=== PATIENT | female | born 1960 | race Caucasian/White ===

== ENCOUNTER 2018-11-17 11:33 | Emergency (ER) | payer OTHER ==
[~2018-11-17] VITALS: Ht 160 cm; Wt 50.9 kg
[~2018-11-17 11:33] MED LIST: ADVAIR DISK1 INH; AFRIN; ALBUTEROL4 M1 PO; ALEVE220 M1 PO; AMOXICILLIN/CL875 MG OR; AMOXICILLIN/CL875 MG PO; BACLOFEN10 MG PO; CIPROFLOXACN500 MG PO; FLORASTOR250 M1 PO; FLOVENT HFA44 MCG IN; FLUARIX QUADRIV1 IN1 IM; KETOROLAC60 MG/2 ML IJ; MEDDOSEPAK OR; MEDDOSEPAK PO; NAPROSYN500 MG PO; NORCO1 TA1 PO; PROAIR HFA IN; PROVENTIL HFA INH; PULMICORT90 MCG IN; QVAR80 MCG IN; TRAMADOL HCL50 MG PO; ULTRAM50 MG OR; VENTOLIN HF1 IN; [UNRECOGNIZED DRUG - OTHER]
[2018-11-17 12:42] LABS: HEMATOCRIT 41.6 % (37.0-47.0); HEMOGLOBIN 14.1 g/dl (12.0-16.0); IMMATURE GRANULOCYTES 0.4 % (0.0-5.0); MEAN CELL VOLUME 89.5 fL CALC (80.0-100.0); MEAN CORPUSCULAR HGB 30.3 pG CALC (26.0-32.0); MEAN CORPUSCULAR HGB CONC 33.9 g/L CALC (32.0-36.0); NEUT# 4.73 thou/uL (2.00-7.15); RED BLOOD COUNT 4.65 mill/uL (4.20-5.60); RED CELL DISTRI WIDTH 12.6 % (11.5-15.5)
[2018-11-17 12:52] LABS: ALBUMIN 4.3 g/dL (3.2-5.0); ALKALINE PHOSPHATASE 86 u/l (38-126); ANION GAP 12 (6-22 (CALC)); BILIRUBIN, TOTAL 0.5 mg/dL (0.0-1.4); BUN 24 mg/dL (7-17); BUN/CREATININE RATIO 31 (12-20 (CALC)); CARBON DIOXIDE 27 mmol/l (22-30); CHLORIDE 103 mmol/l (95-108); CREATININE 0.8 mg/dL (0.5-1.0); GFR > 60 ML/MIN (>=60 (CALC)); GFR FOR AFR.AMER. > 60 ML/MIN (>=60 (CALC)); POTASSIUM 4.2 mmol/l (3.5-5.1); SGOT/AST 26 u/l (14-36); SODIUM 138 mmol/l (137-146); TOTAL PROTEIN 6.8 g/dL (6.3-8.2)
[2018-11-17] MEDS ORDERED: AMOXICILLIN500 MG PO (12:56)
[2018-11-17] MEDS ORDERED: CLARITIN10 M1 PO (12:56)
[2018-11-17] MEDS ORDERED: FLONASE AL50 MCG/ACT (12:56)
[2018-11-17 13:04] VITALS: BP 123/64
== END 2018-11-17 13:10 | disposition home or self-care (01) ==
LOC: ED 11:33
PROVIDERS: Emergency Medicine
DX: R04.0 Epistaxis (principal); J31.0 Chronic rhinitis; J44.9 Chronic obstructive pulmonary disease, unspecified; F17.200 Nicotine dependence, unspecified, uncomplicated

== ENCOUNTER 2022-06-07 08:59 | Emergency (ER) | payer OTHER ==
[~2022-06-07] VITALS: Ht 160 cm; Wt 54.5 kg
[2022-06-07] VITALS (15 sets, daily range): BP systolic 122–141; BP diastolic 48–73
[~2022-06-07 08:59] MED LIST changes: +AMOXICILLIN500 MG PO; +CLARITIN10 M1 PO; +FLONASE AL50 MCG/ACT
[2022-06-07 09:25] LABS: HEMATOCRIT 43.5 % (37.0-47.0); HEMOGLOBIN 14.6 g/dl (12.0-16.0); IMMATURE GRANULOCYTES 2.8 % (0.0-5.0); MEAN CELL VOLUME 92.4 fL CALC (80.0-100.0); MEAN CORPUSCULAR HGB CONC 33.6 g/dL CAL (32.0-36.0); NEUT# 11.12 thou/uL (2.00-7.15); RED BLOOD COUNT 4.71 mill/uL (4.20-5.60); RED CELL DISTRI WIDTH 14.9 % (11.5-15.5)
[2022-06-07] MEDS ORDERED: PREDNISONE10 MG PO (12:17)
[2022-06-07] MEDS ORDERED: ZPAK PO (12:17)
== END 2022-06-07 12:30 | disposition home or self-care (01) ==
LOC: ED 08:59
PROVIDERS: Emergency Medicine
DX: J20.9 Acute bronchitis, unspecified (principal); J44.0 Chronic obstructive pulmonary disease with (acute) lower respiratory infection; F17.200 Nicotine dependence, unspecified, uncomplicated

== ENCOUNTER 2023-01-14 11:05 | Emergency (ER) | payer OTHER ==
[2023-01-14] VITALS (9 sets, daily range): BP systolic 96–129; BP diastolic 40–55
[~2023-01-14] VITALS: Ht 160 cm; Wt 59.4 kg
[~2023-01-14 11:05] MED LIST changes: +PREDNISONE10 MG PO; +ZPAK PO
[2023-01-14] MEDS ORDERED: SYMBICORT1 AE1 IN (11:24)
[2023-01-14] MEDS ORDERED: FLOVENT HF220 MCG/AC (11:24)
[2023-01-14] MEDS ORDERED: ATORVASTATIN CA40 MG PO (11:25)
[2023-01-14] MEDS ORDERED: VOLTAREN1%GEL TOP (12:38)
[2023-01-14] MEDS ORDERED: MOTRIN400 MG/TAB PO (12:38)
[2023-01-14] MEDS ORDERED: TRAMADOL HYDROC50 M1 PO (14:15)
== END 2023-01-14 12:53 | disposition home or self-care (01) ==
LOC: ED 11:05
DX: M25.511 Pain in right shoulder (principal); J44.9 Chronic obstructive pulmonary disease, unspecified

== ENCOUNTER 2024-02-27 09:44 | Emergency (ER) | payer OTHER ==
[~2024-02-27] VITALS: Ht 160 cm; Wt 59.0 kg
[2024-02-27] VITALS (7 sets, daily range): BP systolic 121–151; BP diastolic 61–76
[~2024-02-27 09:44] MED LIST changes: +ATORVASTATIN CA40 MG PO; +FLOVENT HF220 MCG/AC; +MOTRIN400 MG/TAB PO; +SYMBICORT1 AE1 IN; +TRAMADOL HYDROC50 M1 PO; +VOLTAREN1%GEL TOP
[2024-02-27 10:08] LABS: BASO% 0.1 % (0-3); HEMATOCRIT 44.8 % (37.0-47.0); HEMOGLOBIN 14.6 g/dl (12.0-16.0); IMMATURE GRANULOCYTES 2.1 % (0.0-5.0); LYMPH% 8.8 % (15-41); MEAN CELL VOLUME 92.8 fL CALC (80.0-100.0); MEAN CORPUSCULAR HGB 30.2 pG CALC (26.0-32.0); MEAN CORPUSCULAR HGB CONC 32.6 g/dL CAL (32.0-36.0); NEUT# 8.95 thou/uL (2.00-7.15); RED BLOOD COUNT 4.83 mill/uL (4.20-5.60)
[2024-02-27] MEDS ORDERED: IPRATROPIUM-Albuterol 0.5MG-2.5MG/3 ML NEB ONE (10:25)
[2024-02-27] MEDS ORDERED: methylPREDNISolone SODIUM SUCC 125 MG/2 ML SDV IV ONE (10:25)
[2024-02-27] MEDS ORDERED: cefTRIAXone SODIUM 2 GM in SODIUM CHLORIDE 0.9% 100 ML IV ONE (10:25)
[2024-02-27] MEDS ORDERED: AZITHROMYCIN 500 MG in SODIUM CHLORIDE 0.9% 250 ML IV ONE (10:25)
[2024-02-27 10:31] LABS: ALBUMIN 4.4 g/dL (3.2-5.0); ALKALINE PHOSPHATASE 85 u/l (38-126); ANION GAP 9 (6-22 (CALC)); BILIRUBIN, TOTAL 0.6 mg/dL (0.02-1.3); BUN 15 mg/dL (8-23); BUN/CREATININE RATIO 21 (12-20 (CALC)); CARBON DIOXIDE 26 mmol/l (22-30); CHLORIDE 108 mmol/l (95-108); CREATININE 0.7 mg/dL (0.5-1.0); ESTIMATED GFR 98 ML/MIN (>=90 (CALC)); SGOT/AST 30 u/l (9-36); SODIUM 139 mmol/l (137-146)
[2024-02-27] MEDS ORDERED: ZPAK PO (11:41)
[2024-02-27] MEDS ORDERED: PREDNISONE50 MG PO (11:41)
== END 2024-02-27 12:00 | disposition home or self-care (01) ==
LOC: ED 09:44
PROVIDERS: Family Medicine
DX: J44.1 Chronic obstructive pulmonary disease with (acute) exacerbation (principal); E78.5 Hyperlipidemia, unspecified; Z20.822 Contact with and (suspected) exposure to COVID-19